=== PATIENT | female | born 1995 | race Caucasian/White ===

== ENCOUNTER 2017-11-01 13:25 | Inpatient (IN) | payer BC, OTHER, SELFPAY ==
[2017-11-05] MEDS ORDERED: Misoprostol 200 MCG TAB PR PRN (20:39)
[2017-11-05] MEDS ORDERED: Ondansetron HCl/PF 4 MG/2 ML Vial IVP PRN (20:39)
[2017-11-05] MEDS ORDERED: Docusate 100 MG CAP PO PRN (20:39)
[2017-11-05] MEDS ORDERED: Lidocaine 1% (PF) 30 ML VIAL SC PRN (20:39)
[2017-11-05] MEDS ORDERED: Ibuprofen 800 MG TAB PO PRN (20:39)
[2017-11-05] MEDS ORDERED: HYDROcodone/Acetaminophen 5/325 mg Tablet PO PRN ×2 (20:39)
[2017-11-05] MEDS ORDERED: Acetaminophen 500 MG TAB PO PRN (20:39)
[2017-11-05] MEDS ORDERED: NS w/ Oxytocin 10 units 500 ML IV SCH (20:39)
[2017-11-05] MEDS ORDERED: Butorphanol Tartrate 1 MG/ML VIAL SLOW IVP PRN (20:39)
[2017-11-05] MEDS ORDERED: Zolpidem Tartrate 5 MG TAB PO PRN (20:39)
[2017-11-05] MEDS ORDERED: Promethazine HCl 25 MG/ML VIAL IM PRN (20:39)
[2017-11-05] MEDS ORDERED: Diphenoxylate HCl/Atropine Tablet PO PRN ×2 (20:39)
[2017-11-05 20:55] VITALS: BMI 23.4
[2017-11-05] MEDS: Lactated Ringer's 1,000 ML IV SCH (21:30)
[2017-11-05] MEDS: Misoprostol 100 MCG TAB VAG SCH (21:30)
[2017-11-05 21:46] LABS: Hemoglobin 12.3 g/dL (12.0-16.0); Mean Corpuscular HGB CONC 35.9 g/dL (32.0-36.0); Mean Corpuscular Hemoglobin 32.8 pg (27.0-31.0); Mean Corpuscular Volume 91.4 fl (81.0-99.0); Mean Platelet Volume 8.6 fL (7.4-10.4); Platelet Count 183 thou/uL (130-400); RBC Distribution Width 11.4 % (11.5-14.5); Red Blood Cell (RBC) Count 3.75 mill/uL (4.20-5.40); White Blood Cell (WBC) Count 9.3 thou/uL (4.8-10.8)
[2017-11-05 22:24] LABS: Syphilis Antibody Nonreactive (Nonreactive); Syphilis Antibody Index 0.04 S/CO (<1.00 Non-Reactive)
[2017-11-06] MEDS: Lactated Ringer's 1,000 ML IV SCH ×2 (00:05→05:59)
[2017-11-06 00:36] LABS: HBSAg Index 0.21 S/CO (0-0.99); Hep B Surf Ag Non-Reactive S/CO (NonReactive)
[2017-11-06] MEDS ORDERED: DISCONTINUE ALL PREVIOUS NARCOTICS FS SCH (04:30)
[2017-11-06] MEDS ORDERED: Acetaminophen 325 MG TAB PO PRN (05:08)
[2017-11-06] MEDS ORDERED: ePHEDrine/0.9% NaCl/PF SYRINGE 50 mg/10 ml SLOW IVP PRN (05:08)
[2017-11-06] MEDS ORDERED: Naloxone HCl 0.4 mg/ml Vial IVP PRN ×2 (05:08)
[2017-11-06] MEDS ORDERED: diphenhydrAMINE 50 MG/ML VIAL IVP PRN (05:08)
[2017-11-06] MEDS ORDERED: Ondansetron HCl/PF 4 MG/2 ML Vial IVP PRN (05:08)
[2017-11-06] MEDS ORDERED: Eucerin (Mineral Oil/Petrolatum,White) 30 gm Jar TOP PRN (05:08)
[2017-11-06] MEDS ORDERED: Lactated Ringer's 500 ML IV PRN (05:08)
[2017-11-06] MEDS ORDERED: Promethazine HCl 25 MG/ML VIAL IM PRN (05:08)
[2017-11-06] MEDS ORDERED: Fentanyl 4mcg/Marcaine 0.1% Cassette 100 ML EPIDURAL SCH (05:15)
[2017-11-06] MEDS ORDERED: Communication Order-Pharmacy FS SCH (05:15)
[2017-11-06] MEDS: Misoprostol 100 MCG TAB VAG SCH ×4 (06:02→15:41)
[2017-11-06] MEDS: Bupivacaine 0.5% 20 ML, fentaNYL Citrate/PF 400 MCG in Sodium Chloride 0.9% 72 ML EPIDURAL SCH ×2 (06:06→10:46)
[2017-11-06] MEDS: NS / Oxytocin 40 units/1000ml 1,000 ML IV PRN ×2 (11:09→12:29)
[2017-11-06] MEDS ORDERED: Bupivacaine/Epinephrine 0.25% 30 ML VIAL ONE (11:11)
[2017-11-06] MEDS ORDERED: Ibuprofen 800 MG TAB PO SCH (22:45)
[2017-11-06] MEDS ORDERED: Zolpidem Tartrate 5 MG TAB PO PRN (23:15)
[2017-11-07] MEDS: Misoprostol 100 MCG TAB VAG SCH ×2 (05:05→05:06)
[2017-11-07] MEDS: Lactated Ringer's 1,000 ML IV SCH (05:06)
[2017-11-07] MEDS ORDERED: Ibuprofen 800 MG TAB PO SCH (06:00)
[2017-11-07 08:08] VITALS: BP 109/74; TEMP 98.3
== END 2017-11-07 16:00 | disposition home or self-care (01) | DRG 775 ==
LOC: EDSTATUS 11-02 14:41 → L&D 11-05 20:14 → 3SW 11-06 15:39
PROVIDERS: ADMIT Obstetrics & Gynecology; ATTEND Obstetrics & Gynecology
PROC: 10E0XZZ Delivery of Products of Conception, External Approach (ICD-10-PCS; principal; 2017-11-06)
PROC: 0KQM0ZZ Repair Perineum Muscle, Open Approach (ICD-10-PCS; 2017-11-06)
PROC: 3E0P7VZ Introduction of Hormone into Female Reproductive, Via Natural or Artificial Opening (ICD-10-PCS; 2017-11-06)
PROC: 10907ZC Drainage of Amniotic Fluid, Therapeutic from Products of Conception, Via Natural or Artificial Opening (ICD-10-PCS; 2017-11-06)
DX: O48.0 Post-term pregnancy (principal); O70.1 Second degree perineal laceration during delivery; Z37.0 Single live birth; Z3A.40 40 weeks gestation of pregnancy
CPT/HCPCS: 51702; 85027; 86780; 86850; 86900; 86901; 87340; J2001; J3010; J3490; J7050